=== PATIENT | female | born 1970 | race Caucasian/White ===

== ENCOUNTER 2020-08-01 08:52 | Outpatient (RCR) | payer OTHER, SELFPAY ==
--- NOTE | 2020-08-01 11:53 | OTOPEVAL ---
Thank you for referring Heidy Downey to [facility] The patient is scheduled to be seen for therapy? ____x/week for ___ weeks. Please review, sign, date and return this plan of care CALLIE. I agree with and certify that the following plan of care is medically necessary. Referring Physician Date Admitting Provider: Attending Provider: Alexandra Mtz, MD Referring Provider: *OT Outpatient Evaluation Start: 08/01/20 08:23 Freq: Status: Active Protocol: Document 08/01/20 09:10 [facility] [place] 08/01/20 10:03 [facility] [place] [id number] Therapy Assessment Status Assessment Status Assessment Status Evaluation Outpatient Past Medical History Past Medical History No Past Medical/Surgical History Patient/Family Denies Significant Past Medical/ Surgical History Evaluation Information Problem Diagnosis R elbow pain Onset 07/24/20 Cause Lateral epicondylitis of right elbow Subjective Information Patient reports that her R Query Text:As Reported By Patient/ elbow has been bothering her Family on and off for a couple of years now. Patient reports that her right elbow becomes painful when she walking and lifting or grasping anything. Within 5 min of doing anything with the R UE she is in a lot of pain. Patient reports that she got an elbow support brace last week and it has been helping out a lot and her pain has decreased over the last couple weeks. Patient reports that her job consists of a lot of heavy lifting and she also enjoys exercising. Quick DASH score : 15.9% Diagnostic Tests X-Rays For This Problem Yes Prior Level of Function Activity Level (Last 3 Months) Hand Dominance Right Activity of Daily Living Ability Independent Indoor/Home Mobility Independent Community Mobility Independent Stairs Ability Independent Functional Cognition (Planning, Shopping Independent , Taking Medications) Cooking Yes Cleaning Yes Laundry Yes Shopping Yes Driving Yes Home Setting Home Type
== END 2020-08-15 14:06 | disposition home or self-care (01) ==
LOC: CHSOT 08:52
PROVIDERS: PCP Internal Medicine Geriatric Medicine; Visit Provider Internal Medicine
DX: M77.11 Lateral epicondylitis, right elbow (principal)
CPT/HCPCS: 97035; 97110; 97140; 97165